=== PATIENT | female | born 1945 | race Caucasian/White ===

== ENCOUNTER 2019-03-08 13:52 | Emergency (ER) | payer MEDICARE, BC, SELFPAY ==
[2019-03-08 13:55] VITALS: BP 187/113; PULSE 88; RESP 18; TEMP 36.3; O2SAT 97; BMI 43.4
--- NOTE | 2019-03-08 14:59 | ED.BACK ---
HPI - Back Pain/Injury <Linda King PA-C - Last Filed: 03/08/19 21:18> General Chief Complaint: Back Pain/Injury Stated Complaint: BACK PAIN Time Seen by Provider: 03/08/19 14:56 Source: patient Mode of arrival: Ambulatory Limitations: no limitations History of Present Illness HPI Narrative: This 73-year-old female complains of acute worsening of chronic back pain earlier today. She states that she was not able to get up to her PCP as it was too far to drive. She states that in November, she slipped and fell on some grass and felt a pull and strain in her back at the time. She was sore, able to get up and walk and felt like she started to gradually get better but never fully resolved, continued to have pain for the last several months. She states that during this time, she has also been packing and getting ready to move. Today as she finished doing some packing, she felt very sharp pain on her right side that brought her to tears. She states that pain has gradually improved, but still very tender. Pain is worse with moving, twisting. Pain is better with leaning back or at lying flat. Pain has not been awakening her from sleep and she slept well last night, but did have pain when she got up this morning. She has been taking 400 mg ibuprofen every 6 hours as needed usually with some relief but did not help today. She is not taking any other medications for this. She states she takes very low-dose amitriptyline once a day for many many years to with pain from remote jaw injury. Related Data Previous Rx's Medication Instructions Recorded lidocaine [Lidoderm] 3 patch TOP DAILY #30 each 03/08/19 methocarbamol 500 mg PO Q8H PRN #14 tab 03/08/19 Allergies Allergy/AdvReac Type Severity Reaction Status Date / Time Sulfa (Sulfonamide Allergy Verified 03/08/19 13:55 Antibiotics) Review of Systems <Linda King PA-C - Last Filed: 03/08/19 21:18> Review of Systems ROS Unobtainable: All systems reviewed & are unremarkable except as noted in HPI and below Patient History <RAUL Flynn Last Filed: 03/08/19 21:18> Medical History (Updated 03/08/19 @ 16:44 by Linda King PA-C) Blood pressure elevated without history of HTN (Chronic) Surgical History (Updated 03/08/19 @ 16:44 by Linda King PA-C) History of intestinal surgery (Resolved) Status post hysterectomy (Resolved) Social History Smoking Status: Unknown if ever smoked alcohol intake frequency: holidays/special occasions only Substance Use Type: does not use Exam <Linda King PA-C - Last Filed: 03/08/19 21:18> Narrative Exam Narrative: GENERAL APPEARANCE: Patient sitting comfortably, in no distress. PULMONARY: Lungs clear to auscultation bilaterally CV: Regular rhythm regular without murmur, normal S1 and S2, no S3 or S4 MUSCULOSKELETAL: No point tenderness over the thoracic or lumbar spine. Tender over the right inferior trapezius musculature and right SI joint along with inferior lumbar musculature, most at the mid scapular line. Normal sit:stand and gait. Lower extremity strength 5/5 bilateral hip flexors, knee extensors, foot plantar flexion. Negative modified straight leg raise. Full range of motion of the upper extremities, some tenderness with flexion/sit to stay and trunk range of motion. NEUROLOGIC: Alert and oriented with normal speech and coordination, sensation grossly intact through the extremities VASCULAR: No edema or cyanosis Initial Vital Signs Initial Vital Signs: Vital Signs Temperature 97.4 F L 03/08/19 13:55 Pulse Rate 88 03/08/19 13:55 Respiratory Rate 18 03/08/19 13:55 Blood Pressure 187/113 H 03/08/19 13:55 Pulse Oximetry 97 03/08/19 13:55 <Sulaiman Sood DO - Last Filed: 03/09/19 07:10> Initial Vital Signs Initial Vital Signs: Vital Signs Temperature 97.4 F L 03/08/19 13:55 Pulse Rate 88 03/08/19 13:55 Respiratory Rate 18 03/08/19 13:55 Blood Pressure 187/113 H 03/08/19 13:55 Pulse Oximetry 97 03/08/19 13:55 Course <Linda King PA-C - Last Filed: 03/08/19 21:18> Vital Signs Vital signs: Vital Signs - 8 hr 03/08/19 13:55 03/08/19 17:02 Temperature 97.4 F L Pulse Rate 88 76 Respiratory Rate 18 16 Blood Pressure 187/113 H 192/99 H Pulse Oximetry 97 96 <Sulaiman Sood DO - Last Filed: 03/09/19 07:10> Vital Signs Vital signs: Vital Signs - 8 hr 03/08/19 13:55 03/08/19 17:02 Temperature 97.4 F L Pulse Rate 88 76 Respiratory Rate 18 16 Blood Pressure 187/113 H 192/99 H Pulse Oximetry 97 96 MDM - Back Pain/Injury <Linda King PA-C - Last Filed: 03/08/19 21:18> Lab Data Attestation: I reviewed the patient's lab results. Labs: Urine Dip Bedside Urine Glucose Negative Bedside Urine Bilirubin - Negative Bedside Urine Ketone - Negative Urine Specific [place] 1.015 Bedside Urine Occult Blood - Negative Bedside Urine pH 6.0 Bedside Urine Protein - Negative Bedside Urine Urobilinogen - Negative Bedside Urine Nitrite - Negative Bedside Urine Leukocytes - Negative Esterase <Sulaiman Sood DO - Last Filed: 03/09/19 07:10> Lab Data Labs: Urine Dip Bedside Urine Glucose Negative Bedside Urine Bilirubin - Negative Bedside Urine Ketone - Negative Urine Specific [place] 1.015 Bedside Urine Occult Blood - Negative Bedside Urine pH 6.0 Bedside Urine Protein - Negative Bedside Urine Urobilinogen - Negative Bedside Urine Nitrite - Negative Bedside Urine Leukocytes - Negative Esterase Discharge Plan Departure Patient Disposition: Home Clinical Impression: Strain of muscle at thorax level Strain of lumbar region Qualifiers: Encounter type: initial encounter Qualified Code(s): S39.012A - Strain of muscle, fascia and tendon of lower back, initial encounter Discharge Date/Time: 03/08/19 17:05 Instructions: DI for Back Pain With Sciatica, DI for Back Strain or Sprain Activity Restrictions/Additional Instructions: Given the history that you described to me, I think your back sprain from November never got better fully, then has been worse again recently due to packing and preparing for your move. From what happened today, I suspect that you had a muscle spasm. Your urine study was normal here today and the symptoms seem to be coming from the muscles rather than affecting the spinal cord or nerves. Please continue the ibuprofen as you have been taking it. Please add the lidocaine patches (I have sent a prescription to [facility] but you can also get an [id number] version if you prefer). Use these regularly since they will not make you sleepy. I have also prescribed a low-dose of a muscle relaxant called methocarbamol that you can try as needed. Remember that it can make you sleepy, and you should not take it and drive or do other activities were you need to be alert. As we talked about, you should return if you have any acutely worsening symptoms or new symptoms such as weakness in your extremities or inability to urinate. Otherwise, please follow-up in the next week with your PCP or a local provider if you prefer so that you can get further testing and treatment such as a physical therapy referral. You can call the [facility] Resource number that you have to find out about local providers Good luck with your move! Prescriptions: New methocarbamol 500 mg tablet 500 mg PO Q8H PRN (Reason: muscle spasm) Qty: 14 RF: 0 lidocaine [Lidoderm] 5 % adhesive patch,medicated 3 patch TOP DAILY Qty: 30 RF: 0 Referrals: Evan Timmons MD [Primary Care Provider] - <Sulaiman Sood DO - Last Filed: 03/09/19 07:10> Sign Out Provider Sign Out Attestation: I was available for consultation during this patient's emergency department visit. This chart is signed by myself for administrative purposes only. I did not have direct contact with this patient during this visit. They were seen independently by the APC.
[2019-03-08 17:02] VITALS: BP 192/99; PULSE 76; RESP 16; O2SAT 96
--- NOTE | 2019-03-08 17:02 | PC.NURSE ---
referral number given to pt, to establish a primary. education regarding hypertention given, verbal understanding instructions.
== END 2019-03-08 17:05 | disposition home or self-care (01) ==
PROVIDERS: Emergency Provider Internal Medicine; PCP Emergency Medicine Emergency Medical Services
DX: S29.012A Strain of muscle and tendon of back wall of thorax, initial encounter (principal); S39.012A Strain of muscle, fascia and tendon of lower back, initial encounter
CPT/HCPCS: 81003; 99282; 99283

== ENCOUNTER 2019-04-20 08:58 | Emergency (ER) | payer MEDICARE, OTHER, SELFPAY ==
[2019-04-20 09:00] VITALS: BP 178/108; PULSE 81; RESP 14; TEMP 37.3; O2SAT 98; BMI 41.5
--- NOTE | 2019-04-20 09:14 | DI.RAD.S_ITS ---
PROCEDURE: XR RIBS RT MIN 3V W CXR 1V INDICATIONS: Pain posterior midline scapular. fall in November TECHNIQUE: 3 views of the right ribs were acquired, along with a single view chest. COMPARISON: None. FINDINGS: Surgical changes and devices: None. Bones and chest wall: No displaced rib fracture. No fractures or dislocations. No suspicious bony lesions. Overlying soft tissues appear unremarkable. BB marker overlies the inferior medial right ribs. Lungs and pleura: No pleural effusions or pneumothorax. Lungs appear clear. Mediastinum: Mediastinal contours appear normal. Heart size is normal. IMPRESSION: No displaced fractures identified. Dictated by: Demond Hernandez M.D. on 04/20/2019 at 9:48 Approved by: Demond Hernandez M.D. on 04/20/2019 at 9:51
--- NOTE | 2019-04-20 09:53 | PC.NURSE ---
Pt CSM normal. Moving all extremities equally well. Easy work of breathing with equal breathsounds. No acute distress at rest.
--- NOTE | 2019-04-20 10:41 | ED_ITS ---
HPI - Back Pain/Injury General Chief Complaint: Back Pain/Injury Stated Complaint: RIGHT SIDE/BACK PAIN Time Seen by Provider: 04/20/19 09:26 Source: patient Mode of arrival: Ambulatory Limitations: no limitations History of Present Illness HPI Narrative: Patient comes emergency department complaining of right-sided back pain since November. She states the pain started after a fall in her yd. She states at the time, her feet slipped out from under her and she fell flat on her back in the grass. Patient states she felt a sharp pain in her lower interscapular area at that time, but figured it would go away on its own. She states that the pain has really never completely gone away, and in fact, in the recent couple months, is seems to be worse. Patient states that it hurts with movement in that she gets sharp pain. she denies any shortness of breath or frontal chest pain. She states it does hurt to take a deep breath sometimes. She states that she has been trying to combat her obesity by fasting once a week and lost 8 lb. She had hoped this would help with the pain but has not. 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 This also seems to make the pain worse. Related Data Home Medications Medication Instructions Recorded Confirmed amitriptyline 25 mg PO BEDTIME 04/20/19 04/20/19 estradiol 1 mg PO DAILY 04/20/19 04/20/19 ketorolac 10 mg PO PRN PRN 04/20/19 04/20/19 lidocaine See Rx Instructions .ROUTE .COMPLEX 04/20/19 04/20/19 losartan 25 mg PO DAILY 04/20/19 04/20/19 Previous Rx's Medication Instructions Recorded methocarbamol 500 mg PO Q8H PRN #14 tab 03/08/19 hydrocodone-acetaminophen 1 tab PO Q4H PRN #14 tab 04/20/19 Allergies Allergy/AdvReac Type Severity Reaction Status Date / Time Sulfa (Sulfonamide Allergy Verified 04/20/19 09:13 Antibiotics) Patient History Medical History (Updated 04/20/19 @ 11:34 by Alessandra Kolb MD) Blood pressure elevated without history of HTN (Chronic) Surgical History (System 03/15/19 @ 10:45 by Leana Lynn) History of intestinal surgery (Resolved) Status post hysterectomy (Resolved) Social History (System 03/15/19 @ 10:45 by Leana Lynn) Smoking Status: Never smoker Smoking Status: Never smoker alcohol intake frequency: holidays/special occasions only Substance Use Type: does not use Exam Initial Vital Signs Initial Vital Signs: Vital Signs Temperature 99.1 F 04/20/19 09:00 Pulse Rate 81 04/20/19 09:00 Respiratory Rate 14 04/20/19 09:00 Blood Pressure 178/108 H 04/20/19 09:00 Pulse Oximetry 98 04/20/19 09:00 Const General: cooperative and well developed Nutritional Appearance: well nourished Orientation: alert, awake, oriented x3 and not confused HENMD Head: normocephalic and atraumatic Ears: external ears normal Nose: external nose normal and No nasal discharge Face and sinus: face symmetric and No dry mucous membranes Mouth: oral mucosae normal and moist mucous membranes Teeth and gingiva: dentition normal Eyes General: appearance normal, both eyes and all related structures Eyelids: eyelids normal Conjunctivae: conjunctivae normal Sclera: sclerae normal Pupils: PERRL EOM: EOM intact bilaterally Neck Neck: normal visual inspection, trachea midline, No lymphadenopathy, No midline deformity and No JVD Lymphatic: No lymphedema Chest Chest: normal inspection of the chest Resp Effort & Inspection: normal respiratory effort, able to speak in complete sentences, no respiratory distress and no use of accessory muscles Auscultation: clear to auscultation bilaterally, no rales, no rhonchi and no wheezes Cardio Rate: regular rate Rhythm: regular rhythm Heart Sounds: no click, no gallops, no murmurs and no rubs Pulses: normal peripheral pulses GI Inspection: non-distended Palpation: soft, no hepatosplenomegaly, No guarding, No pulsatile mass and No tender Auscultation: normal bowel sounds Back/Spine/Pelvis Back: No CVA tenderness Cervical Spine: cervical ROM normal and No pain with cervical ROM Thoracic/Lumbar Spine: thoracic and lumbar spine normal to inspection Other: Patient has thoracic paraspinal and intrascapular muscular tenderness on the right. There is no deformity, tenderness, or step-off the thoracic spine. No rib deformity underlying. Skin General: no rashes or lesions noted, No jaundice and No petechiae Neuro General: alert, oriented x3, gait normal and no focal motor deficits Speech: speech normal Extrem General: full ROM, no clubbing, cyanosis or edema, no pedal edema and no calf tenderness Psych Appearance: well kempt Mental Status: mental status grossly normal Attitude: cooperative Thought Content: normal and suicidality Judgment: judgment good Course Course Course Narrative: Patient was treated symptomatically with Toradol and hydrocodone, and sent for an x-ray of her ribs and chest, which was unremarkable for acute findings. I did discuss with the patient that it has been and extended amount of time since her initial injury, and most likely, even if she did have a rib fracture, it would have healed by now. We have discussed that this very well could be a soft tissue injury, which sometimes can take a longer time to heal. We have discussed home management of symptoms, the need for follow-up, and the usual indications for return. Orders Ordered: ED Orders 04/20/19 09:14 XR ribs RT min 3V w CXR1V Stat Discontinued Medications Hydrocodone Bitart/Acetaminophen ([place] 5/325) 1 tab PO NOW ONE Stop: 04/20/19 10:41 Last Admin: 04/20/19 11:04 Dose: 1 tab Documented by: FLORENTINO Ketorolac Tromethamine (Toradol) 30 mg IM NOW ONE Stop: 04/20/19 10:41 Last Admin: 04/20/19 11:03 Dose: 30 mg Documented by: FLORENTINO Vital Signs Vital signs: Vital Signs - 8 hr 04/20/19 09:00 Temperature 99.1 F Pulse Rate 81 Respiratory Rate 14 Blood Pressure 178/108 H Pulse Oximetry 98 MDM - Back Pain/Injury Medical Records Attestation: I reviewed the patient's medical records. Imaging Data Chest x-ray: Radiologist's impression: PROCEDURE: CT HEAD/BRAIN WO CON INDICATIONS: stroke TECHNIQUE: Noncontrast 4.5 mm thick angled axial sections acquired from the foramen magnum to the vertex, with coronal and sagittal reformats. For radiation dose reduction, the following was used: automated exposure control, adjustment of mA and/or kV according to patient size. COMPARISON: [facility], CT, CT HEAD/BRAIN WO CON, 02/13/2019, 23:32. [facility], CT, HEAD WITHOUT CONTRAST, 06/11/2016, 18:45. FINDINGS: Image quality: Excellent. CSF spaces: Basal cisterns are patent. No extra-axial fluid collections. The ventricles are symmetric in size and shape. Brain: No intracranial masses or but there is left hemispheric brain parenchymal hemorrhage, centered within the deep white matter of the parietal lobe including the parieto-occipital junction, with overall dimensions 7.5 cm AP, 4.4 cm transversely with a craniocaudad length of 4.8 cm. No intraventricular or subarachnoid hemorrhage is found. There is mild midline shift from left to right, only by approximately 4 mm. There is superimposed cerebral volume loss for age, with resultant ventricular and sulcal prominence. There are periventricular and deep white matter chronic small vessel ischemic changes. There is intracranial internal carotid artery atherosclerosis. Skull and face: Calvarium and visualized facial bones appear intact, without suspicious lesions. Sinuses: Visualized sinuses and mastoids are clear. IMPRESSION: Large deep white matter hemorrhage in an area previously normal 02/13/19, involving the left parietal deep white matter and occipital parietal junction region, measuring up to 7.5 x 4.4 x 4.8 cm with a mild degree of [id number] mass effect. Contralateral hydrocephalus, intraventricular hemorrhage, or subarachnoid hemorrhage has not developed. Findings immediately called to the emergency room physician caring for the patient at 10:10. Dictated by: Jovanni Brown M.D. on 04/20/2019 at 10:09 Approved by: Jovanni Brown M.D. on 04/20/2019 at 10:15 Discharge Plan Departure Patient Disposition: Home Clinical Impression: Strain of thoracic back region Discharge Date/Time: 04/20/19 11:44 Instructions: DI for Back Strain or Sprain Activity Restrictions/Additional Instructions: There is no evidence of a broken rib at this time. However, has been quite a long time since her initial injury and it is possible that you could have had a small crack. More likely, however, is that you tore some of the cartilage or other soft tissue structures, such as tendon and ligament, and that the injuries have not fully healed yet. This can take some months, and though your weight loss is definitely positive thing, the remaining obesity is likely still exerting some strain on the injured area. This can make the healing process take longer. However, healing well ultimately occur on its own. You may follow up with physical therapy and take as needed medication for the symptoms. You may also try getting massage as this can also be helpful. Please follow up with her primary doctor to discuss whether you may need MRI in the future. Prescriptions: New hydrocodone-acetaminophen 5-325 mg tablet 1 tab PO Q4H PRN (Reason: pain) Qty: 14 RF: 0 No Action methocarbamol 500 mg tablet 500 mg PO Q8H PRN (Reason: muscle spasm) Qty: 14 RF: 0 amitriptyline 25 mg tablet 25 mg PO BEDTIME RF: 0 estradiol 1 mg tablet 1 mg PO DAILY RF: 0 lidocaine 5 % adhesive patch,medicated See Rx Instructions .ROUTE .COMPLEX RF: 0 ketorolac 10 mg tablet 10 mg PO PRN PRN (Reason: Migraine Headache) RF: 0 losartan 25 mg tablet 25 mg PO DAILY RF: 0 Referrals: Evan Timmons MD [Primary Care Provider] -
[2019-04-20] MEDS: KETOROLAC 60 MG/2 ML VIAL 30 MG IM (11:03)
[2019-04-20] MEDS: HYDROCODONE/ACET 5/325 TABLET 1 TAB PO (11:04)
[2019-04-20 11:42] VITALS: BP 148/78; PULSE 80; RESP 17; O2SAT 98
== END 2019-04-20 11:44 | disposition home or self-care (01) ==
PROVIDERS: Emergency Provider Emergency Medicine; PCP Emergency Medicine Emergency Medical Services
DX: S29.012A Strain of muscle and tendon of back wall of thorax, initial encounter (principal); W01.0XXA Fall on same level from slipping, tripping and stumbling without subsequent striking against object, initial encounter
CPT/HCPCS: 71101; 96372; 99282; 99283; J1885